=== PATIENT | female | born 1980 | race Caucasian/White ===

== ENCOUNTER 2017-01-10 10:41 | Emergency (ER) | payer BC ==
[~2017-01-10] VITALS: Ht 162.6 cm; Wt 67.5 kg
[~2017-01-10 10:41] MED LIST: NO DAILY MEDICATIONS
[2017-01-10 10:45] VITALS: Ht 162.6 cm; Wt 67.5 kg
--- OUTSIDE RECORDS SUMMARY | 2017-01-10 10:45 | XMS REPORT | Continuity of Care Document ---
Author Author [facility] Organization [facility] Address Unknown Phone Unavailable Support Name Relationship Address Phone TERRIE PIZANO MD Caregiver [address] [place] [address] Unavailable SATNAM MORATAYA APRN Caregiver [address] [place] [address] Unavailable IZABEL NIEVES Next Of Kin [address] [place] [address] Insurance Providers Guarantor Constance Wyatt Address [address] [place] [address] Email [email or web address] Payer [facility] Other Policy Number [id number] Subscriber's Name Branham JamesConstance fuller Relationship 18 Self Group Number [id number] Chief Complaint and Reason for Visit Chief Complaint Cough,Fever,Flu,URI Reason for Visit [id number] Problems Active Problems Medical Problem Onset Date Status Neck muscle spasm Unknown Acute Neck muscle spasm Unknown Acute Past Problems Medical Problem Onset Date Acute upper respiratory infection Unknown Influenza B Unknown Medications Current Home Medications Medication Dose Units Route Directions Days Qty Instructions Start Date No Daily Medications 12/18/16 Social History Social History Problem Response Recorded Date/Time Onset Date Status Hx Substance Use No 07/25/2014 2:13pm Not Applicable Not Applicable Hx Alcohol Use No 07/25/2014 2:13pm Not Applicable Not Applicable Has the pt used tobacco in the last 12 months No 06/04/2012 9:30am Not Applicable Not Applicable Tobacco Usage none 07/28/2014 11:20pm Not Applicable Not Applicable Hospital Discharge Instructions No hospital discharge instructions. Plan of Care Discharge Date 12/18/16 5:28pm Disposition 01 DISCHARGED HOME, SELF-CARE Condition at Discharge Stable Instructions/Education Provided Influenza (ED) Prescriptions See Medication Section Referrals TERRIE PIZANO MD Address: [address] [place], [place] [id number] Functional Status No functional status results. Allergies, Adverse Reactions, Alerts No known allergies. Immunizations Query Response on File Recorded Date/Time Hx Influenza Vaccination No 07/25/14 2:13pm Hx Pneumococcal Vaccination No 07/25/14 2:13pm Hx Influenza Vaccination No 07/25/14 2:13pm Influenza Vaccine Hx NO 12/18/16 5:16pm Tetanus Diptheria Vaccine History UNKNOWN 12/18/16 5:16pm Vital Signs Acute Vital Signs Vital Response Date/Time Temperature (Fahrenheit) 98.8 deg F (96.8 - 99.1) 12/18/2016 5:11pm Temperature (Calculated Celsius) 37.09808 degrees C (36.0 - 37.3) 12/18/2016 5:11pm Pulse Rate (adult) 106 bpm (60 - 100) 12/18/2016 5:11pm Respiratory Rate 20 breaths/min (10 - 20) 12/18/2016 5:11pm O2 Sat by Pulse Oximetry 100 % (90 - 100) 12/18/2016 5:11pm Blood Pressure 123/83 mm Hg 12/18/2016 5:11pm Height (Inches) 61.00 inches 12/18/2016 5:11pm Weight (Kilograms) 66.400 kg 12/18/2016 5:11pm Body Mass Index (BMI) 27.0 12/18/2016 5:11pm Results No known relevant diagnostic tests, laboratory data and/or discharge summary. Procedures No known history of procedures. Encounters Encounter Location Arrival/Admit Date Discharge/Depart Date Attending Provider Departed Emergency Room [facility] 12/18/16 5:01pm 12/18/16 5: 28pm SATNAM MORATAYA APRN Departed Emergency Room [facility] 10/09/16 10:06am 10/09/16 11: 12am SATNAM MORATAYA APRN Recent Diagnosis
--- OUTSIDE RECORDS SUMMARY | 2017-01-10 10:45 | XMS REPORT | Continuity of Care Document ---
Author Author [facility] Organization [facility] Address Unknown Phone Unavailable Support Name Relationship Address Phone KLARISSA RAMOS MD Caregiver [address] [place] [address] [place] [address] LEANDER CHANCE MD Caregiver [address] [place] [address] IZABEL NIEVES Next Of Kin [address] [place] [phone] Insurance Providers Payer Name Policy Number Subscriber Name Relationship Self Pay Constance Wyatt 18 Self Problems Medical Problems Problem Onset Date Status Neck muscle spasm Unknown Active Neck muscle spasm Unknown Active Medications Medication Dose Route Sig Days/Qty Instructions Order Date Discontinued Date Status Hydrocodone/Acetaminophen 1 Tab PO EVERY 4-6 HOURS PRN PAIN 15 Qty for pain not controlled with IBuprofen 07/25/14 Active Orphenadrine Citrate 100 Mg PO EVERY 12 HOURS PRN SPASMS 20 Qty Active Social History Social History Problem Response Recorded Date/Time Smoking Status Never smoker 07/25/2014 2:13pm Hx Substance Use No 07/25/2014 2:13pm Hx Alcohol Use No 07/25/2014 2:13pm Has the pt used tobacco in the last 12 months No 06/04/2012 9:30am Query Response Start Date Stop Date Smoking Status Never smoker Hospital Discharge Instructions No hospital discharge instructions. Plan of Care No plan of care. Functional Status Query Response Date Recorded Physical Hygiene Self July 25, 2014 2:13pm Disabilities None July 25, 2014 2:13pm Devices Used None July 25, 2014 2:13pm Dressing Self July 25, 2014 2:13pm Ambulation Self July 25, 2014 2:13pm Diet Self July 25, 2014 2:13pm Mental Status Alert Oriented July 25, 2014 2:13pm Disabilities None July 25, 2014 2:13pm Devices Used None July 25, 2014 2:13pm Physical Hygiene Self July 25, 2014 2:13pm Dressing Self July 25, 2014 2:13pm Ambulation Self July 25, 2014 2:13pm Diet Self July 25, 2014 2:13pm Allergies, Adverse Reactions, Alerts Allergen Type Severity Reaction Status Last Updated No Known Allergies Active 03/04/12 Immunizations Name Given Type Hx Influenza Vaccination No Historical Hx Pneumococcal Vaccination No Historical Hx Influenza Vaccination No Historical Vital Signs Acute Vital Signs Vital Response Date/Time Temperature (Fahrenheit) 98.3 deg F (96.8 - 99.1) Temperature (Calculated Celsius) 36.18824 degrees C (36.0 - 37.3) Pulse Rate (adult) 64 bpm (60 - 100) Respiratory Rate 16 breaths/min (10 - 20) O2 Sat by Pulse Oximetry 100 % (90 - 100) Blood Pressure 118/69 mm Hg Height 5 ft 1 in Weight 175 lb Body Mass Index 33.0 kg/m^2 Results Test Source Date Result Interp. Ref. Range Comments Alanine Aminotransferase (ALT/SGPT) June 05, 2012 4:35am 11 U/L N 9 -52 Albumin June 05, 2012 4:35am 2.8 G/DL L 3.5-5.0 Albumin/Globulin Ratio June 05, 2012 4:35am 0.9 RATIO L 1.1-2.2 Alkaline Phosphatase June 05, 2012 4:35am 70 U/L N 38-126 Anion Gap June 05, 2012 4:35am 7 MEQ/L N 5-15 Aspartate Amino Transf (AST/SGOT) June 05, 2012 4:35am 15 U/L N 14- 36 BUN/Creatinine Ratio June 05, 2012 4:35am 20 RATIO N 6-26 Band Neutrophils # May 25, 2012 5:49pm 1.1 T/MM3 - PLEASE CASH POSTING SPECIALIST Band Neutrophils % May 25, 2012 5:49pm 9.0 % H 0-6 PLEASE CASH POSTING SPECIALIST Basophils # (Auto) June 07, 2012 4:35am 0.0 T/MM3 N 0-0.2 Basophils (%) (Auto) June 07, 2012 4:35am 0.5 % N 0-2 Blood Urea Nitrogen June 05, 2012 4:35am 16.0 MG/DL N 7-17 Calcium Level June 05, 2012 4:35am 7.9 MG/DL DL 8.4-10.2 Calculated Osmolality June 05, 2012 4:35am 266 MOSM/KG N 261-280 Carbon Dioxide Level June 05, 2012 4:35am 26 MEQ/L N 22-30 Chloride Level June 05, 2012 4:35am 105 MEQ/L N 98-107 Conjugated Bilirubin March 04, 2012 6:56pm 0.00 MG/DL N 0.00-0.30 Creatinine June 05, 2012 4:35am 0.8 MG/DL DN 0.7-1.2 Eosinophils # (Auto) June 07, 2012 4:35am 0.1 T/MM3 N 0-0.5 Eosinophils (%) (Auto) June 07, 2012 4:35am 0.8 % N 0-4 Ferritin August 16, 2011 1:20pm 24.4 NG/ML N 6-137 Folate August 16, 2011 1:20pm > 20.0 NG/ML H 2.76-20 NORMAL ADULT RANGE: 2.76->20 ng/mL Free Thyroxine August 16, 2011 1:20pm 0.98 NG/DL N 0.78-2.19 Globulin June 05, 2012 4:35am 3.1 G/DL N 2.4-3.6 Glucose Level June 05, 2012 4:35am 85 MG/DL N 65-110 Hematocrit June 07, 2012 4:35am 31.0 % L 36-46 Hemoglobin June 07, 2012 4:35am 9.8 GM/DL L 12-16 Hemoglobin A1c August 16, 2011 1:20pm 4.8 % L 6-7 <6.0 NON-DIABETIC RANGE6.0-7.0 ADA THERAPEUTIC RANGE >7.0 ACTION SUGGESTED Lymphocytes # (Auto) June 07, 2012 4:35am 1.7 T/MM3 N 1-4.8 Lymphocytes # (Manual) May 25, 2012 5:49pm 0.7 T/MM3 L 1-4.8 PLEASE CASH POSTING SPECIALIST Lymphocytes % (Manual) May 25, 2012 5:49pm 6.0 % L 23-45 PLEASE CASH POSTING SPECIALIST Lymphocytes (%) (Auto) June 07, 2012 4:35am 29.2 % N 23-45 Mean Corpuscular Hemoglobin June 07, 2012 4:35am 28.8 UUG N 26-34 Mean Corpuscular Hemoglobin Concent June 07, 2012 4:35am 31.6 GM/DL N 31-37 Mean Corpuscular Volume June 07, 2012 4:35am 91.2 UM3 N 80-100 Mean Platelet Volume June 07, 2012 4:35am 10.5 UM3 N 9.4-12.4 Monocytes # (Auto) June 07, 2012 4:35am 0.3 T/MM3 N 0-0.8 Monocytes # (Manual) May 25, 2012 5:49pm 0.6 T/MM3 N 0-0.8 PLEASE CASH POSTING SPECIALIST Monocytes % (Manual) May 25, 2012 5:49pm 5.0 % N 0-9.0 PLEASE CASH POSTING SPECIALIST Monocytes (%) (Auto) June 07, 2012 4:35am 4.4 % N 0-9.0 Neutrophils # (Auto) June 07, 2012 4:35am 3.8 T/MM3 N 1.8-7.7 Neutrophils # (Manual) May 25, 2012 5:49pm 9.5 T/MM3 H 1.8-7.7 PLEASE CASH POSTING SPECIALIST Neutrophils % (Manual) May 25, 2012 5:49pm 80.0 % H 33-66 PLEASE CASH POSTING SPECIALIST Neutrophils (%) (Auto) June 07, 2012 4:35am 64.6 % N 33-66 Platelet Count June 07, 2012 4:35am 241 T/MM3 N 130-400 Potassium Level June 05, 2012 4:35am 4.2 MEQ/L N 3.6-5 RDW Standard Deviation June 07, 2012 4:35am 42.6 FL N 36.9-50.2 Red Blood Count June 07, 2012 4:35am 3.40 M/MM3 L 4.00-5.20 Sodium Level June 05, 2012 4:35am 138 MEQ/L N 134-144 Thyroid Stimulating Hormone (TSH) August 16, 2011 1:20pm 0.60 MIU/L N 0.47-4.68 Total Bilirubin June 05, 2012 4:35am 0.10 MG/DL L 0.20-1.30 Total Protein June 05, 2012 4:35am 5.9 G/DL L 6.3-8.2 Unconjugated Bilirubin March 04, 2012 6:56pm 0.00 MG/DL N 0.00-1.10 Urine Bacteria May 25, 2012 5:49pm 1+ H - Urine Bilirubin June 04, 2012 10:51am Negative - Has specimen been collected/obtained? Y Urine Blood June 04, 2012 10:51am Negative - Has specimen been collected/obtained? Y Urine Collection Type June 04, 2012 10:51am Voided - Has specimen been collected/obtained? Y Urine Color June 04, 2012 10:51am Yellow - Has specimen been collected/obtained? Y Urine Culture Indicated May 25, 2012 5:49pm Cult reflexed &setup - Urine Drug Screen (T) October 09, 2013 11:10am Sent out - Urine Glucose (UA) June 04, 2012 10:51am Negative - Has specimen been collected/obtained? Y Urine Ketones June 04, 2012 10:51am Negative - Has specimen been collected/obtained? Y Urine Leukocyte Esterase June 04, 2012 10:51am Negative - Has specimen been collected/obtained? Y Urine Nitrite June 04, 2012 10:51am Negative - Has specimen been collected/obtained? Y Urine Protein June 04, 2012 10:51am Negative - Has specimen been collected/obtained? Y Urine RBC May 25, 2012 5:49pm 10-20 /HPF H - Urine Specific [place] June 04, 2012 10:51am 1.010 L - Has specimen been collected/obtained? Y Urine Squamous Epithelial Cells May 25, 2012 5:49pm Few - Urine Turbidity June 04, 2012 10:51am Clear - Has specimen been collected/obtained? Y Urine Urobilinogen June 04, 2012 10:51am Normal EU/DL - Has specimen been collected/obtained? Y Urine WBC May 25, 2012 5:49pm 10-20 /HPF H - Urine WBC Clumps May 18, 2012 6:07pm Many H - Urine pH June 04, 2012 10:51am 6.5 - Has specimen been collected /obtained? Y Vitamin B12 Level August 16, 2011 1:20pm 429 PG/ML N 239-931 White Blood Count June 07, 2012 4:35am 5.9 T/MM3 N 4.5-11.0 Lab Scanned Report October 15, 2013 7:26pm [facility] LAB [id number] - Glomerular Filtration Rate Calc June 05, 2012 4:35am 83 - Immature Granulocyte # (Auto) June 07, 2012 4:35am 0.03 T/MM3 N 0.00-0.03 Immature Granulocyte % (Auto) June 07, 2012 4:35am 0.5 % N 0.0-0.5 Beta HCG, Quantitative March 04, 2012 6:56pm [id number] UIU/ML - --- 03/04 1955 ---HCG-QUANTI previously reported as: > [id number] UIU/ML NON- INDIVIDUALS=0 - 4.83; SAMPLES BETWEEN 4.83 - 25 SHOULD BE RE-TESTED AFTER 48 HOURS IF IS SUSPECTED; GESTATION 1-10 WEEKS: 45-256,380; 11-15 WEEKS: 11,556-265,380; 16-22 WEEKS: 27,023-111,954; 23-40 WEEKS: 24,031-101,566 Urine Microscopic Not Indicated June 04, 2012 10:51am Not indicated - Has specimen been collected/obtained? Y Blood Culture Blood June 04, 2012 10:45am NO GROWTH AFTER 5 DAYS Urine Culture Urine, Clean Catch Voided June 04, 2012 12:13pm Escherichia Coli Gram Stain Thigh-Left January 15, 2012 5:30pm Name: CONSTANCE WYATT Unit #: [id number] : 1980 Sex: F Loc / Svc: ED DOS: 07/25/14 Signed Report #: [id number] DIAGNOSTIC IMAGING REPORT TYPE OF EXAM: CT CERVICAL SPINE W/O CONTRAST Dictated By: ERLIN AL MD INDICATION: ITS.REASON: neck popped yesterday, severe neck pain CT CERVICAL SPINE W/O CONTRAST: Comparison: None Technique: Axial CT images through the cervical spine were performed without contrast. Coronal and sagittal reformatted images were also obtained. FINDINGS: The alignment of the cervical spine is normal. Multilevel degenerative changes are present. There is no evidence of acute fracture or subluxation of the cervical spine. The facet joints are well aligned with preservation of the intervertebral disk and facet joints. The atlantoaxial articulation, dens, and upper cervical spine demonstrate no subluxation. There is no evidence of significant spinal stenosis, foraminal compromise, or significant disk herniation. The paraspinal soft tissues and spinal canal appear unremarkable. IMPRESSION: No acute traumatic abnormality of the cervical spine. . Addendum: The second sentence of the findings section should read: No significant degenerative changes are present. . Procedures No known history of procedures. Encounters Encounter Location Date/Time Departed Emergency Room [facility] 07/25/14 2:02pm Recent Diagnosis
[2017-01-10] MEDS ORDERED: CYCL-375 PO (11:08)
[2017-01-10] MEDS ORDERED: MELO-267 PO (11:08)
--- NOTE | 2017-01-10 11:24 | NUR ---
LAB LAB AT BEDSIDE FOR BLOOD DRAW
--- OUTSIDE RECORDS SUMMARY | 2017-01-10 11:36 | XMS REPORT | Continuity of Care Document ---
Author Author [facility] Organization [facility] Address Unknown Phone Unavailable Support Name Relationship Address Phone KLARISSA RAMOS MD Caregiver [address] [place] [address] [place] [address] LEANDER CHANCE MD Caregiver [address] [place] [address] IZABEL NIEVES Next Of Kin [address] [place] [phone] Insurance Providers Payer Name Policy Number Subscriber [...] F (96.8 - 99.1) Temperature (Calculated Celsius) 36.01417 degrees C (36.0 - 37.3) Pulse Rate [...] 25, 2012 5:49pm 1.1 T/MM3 - PLEASE FIGHT MANAGER Band Neutrophils % May 25, 2012 5:49pm 9.0 % H 0-6 PLEASE FIGHT MANAGER Basophils # (Auto) June 07, 2012 4:35am [...] 2012 5:49pm 0.7 T/MM3 L 1-4.8 PLEASE FIGHT MANAGER Lymphocytes % (Manual) May 25, 2012 5:49pm 6.0 % L 23-45 PLEASE FIGHT MANAGER Lymphocytes (%) (Auto) June 07, 2012 4:35am [...] 2012 5:49pm 0.6 T/MM3 N 0-0.8 PLEASE FIGHT MANAGER Monocytes % (Manual) May 25, 2012 5:49pm 5.0 % N 0-9.0 PLEASE FIGHT MANAGER Monocytes (%) (Auto) June 07, 2012 4:35am 4.4 % N 0-9.0 Neutrophils # (Auto) June 07, 2012 4:35am 3.8 T/MM3 N 1.8-7.7 Neutrophils # (Manual) May 25, 2012 5:49pm 9.5 T/MM3 H 1.8-7.7 PLEASE FIGHT MANAGER Neutrophils % (Manual) May 25, 2012 5:49pm 80.0 % H 33-66 PLEASE FIGHT MANAGER Neutrophils (%) (Auto) June 07, 2012 4:35am [...] 5:49pm 10-20 /HPF H - Urine Specific [place] June 04, 2012 10:51am 1.010 L - [...] Report October 15, 2013 7:26pm [facility] [id number] - Glomerular Filtration Rate Calc June 05, 2012 4:35am 83 - Immature Granulocyte # (Auto) June 07, 2012 4:35am 0.03 T/MM3 N 0.00-0.03 Immature Granulocyte % (Auto) June 07, 2012 4:35am 0.5 % N 0.0-0.5 Beta HCG, Quantitative March 04, 2012 6:56pm [id number] UIU/ML - --- 03/04 1955 ---HCG-QUANTI previously reported as: > [id number] UIU/ML NON- INDIVIDUALS=0 - 4.83; SAMPLES BETWEEN [...] 2012 5:30pm Name: CONSTANCE WYATT Unit #: [id number] : 1980 Sex: F Loc / Svc: ED DOS: 07/25/14 Signed Report #: [id number] DIAGNOSTIC IMAGING REPORT TYPE OF EXAM: CT [...] Encounters Encounter Location Date/Time Departed Emergency Room [facility] 07/25/14 2:02pm Recent Diagnosis
[2017-01-10 11:58] LABS: BLOOD, URINE NEGATIVE (NEGATIVE); COLOR,URINE YELLOW (YELLOW); LEUKOCYTE ESTERASE ,URINE NEGATIVE (NEGATIVE); NITRITE,URINE NEGATIVE (NEGATIVE); UROBILINOGEN,URINE 0.2 EU/DL (NORMAL)
[2017-01-10 11:58] LABS: BASOPHILS % (AUTO) 0.4 % (0-2); EOSINOPHILS # (AUTO) 0.1 T/MM3 (0-0.5); HCT - HEMATOCRIT 42.3 % (36-46); HGB - HEMOGLOBIN 14.1 GM/DL (12-16); IMMATURE GRANULOCYTE # (AUTO) 0.02 T/MM3 (0.00-0.03); IMMATURE GRANULOCYTE % (AUTO) 0.4 % (0.0-0.5); LYMPHOCYTES # (AUTO) 1.6 T/MM3 (1-4.8); LYMPHOCYTES % (AUTO) 29.9 % (23-45); MEAN CORPUSCULAR HGB 30.9 UUG (26-34); MEAN CORPUSCULAR HGB CONC(MCHC 33.3 GM/DL (31-37); MEAN CORPUSCULAR VOLUME 92.8 UM3 (80-100); MEAN PLATELET VOLUME 12.2 UM3 (9.4-12.4); MONOCYTES # (AUTO) 0.3 T/MM3 (0-0.8); NEUTROPHILS #(AUTO)-ABSOLUTE 3.3 T/MM3 (1.8-7.7); NEUTROPHILS % (AUTO) 63.3 % (33-66); RED BLOOD COUNT 4.56 M/MM3 (4.00-5.20); WBC - WHITE BLOOD COUNT 5.2 T/MM3 (4.5-11.0)
[2017-01-10 12:12] LABS: ALBUMIN 4.1 G/DL (3.5-5.0); ALBUMIN/GLOBULIN RATIO 1.2 RATIO (1.1-2.2); ALKALINE PHOSPHATASE 69 U/L (38-126); ALT (SGPT) 33 U/L (9-52); ANION GAP 16 MEQ/L (5-15); AST (SGOT) 30 U/L (14-36); BUN/CREATININE RATIO 23 RATIO (6-26); CALCIUM 9.4 MG/DL (8.4-10.2); CHLORIDE 110 MEQ/L (98-107); CO2 - CARBON DIOXIDE 20 MEQ/L (22-30); CREATININE 0.6 MG/DL (0.7-1.2); GLOMERULAR FILTRATION RATE 113; GLUCOSE 80 MG/DL (65-110); LIPASE 148 U/L (23-300); POTASSIUM 4.5 MEQ/L (3.6-5); SODIUM 146 MEQ/L (134-144); TOTAL PROTEIN 7.5 G/DL (6.3-8.2)
--- NOTE | 2017-01-10 12:35 | NUR ---
PELVIC DR ADKINS AT BEDSIDE WITH RN, PELVIC EXAM PERFORMED, PATIENT TOLERATES EXAM WELL.
[2017-01-10] MEDS ORDERED: FENTANYL 100mcg/2ml INJECTION IV ONE (12:45)
[2017-01-10] MEDS ORDERED: NORMAL SALINE 1,000 ML IV ONE (12:45)
[2017-01-10] MEDS ORDERED: ONDANSETRON 4mg/2ml INJECTION IV ONE (12:45)
[2017-01-10] MEDS ORDERED: IOHEXOL 300 MG/ML 100ml INJECTION ONE (12:54)
[2017-01-10] MEDS ORDERED: NORMAL SALINE 100 ML ONE (12:54)
[2017-01-10] MEDS ORDERED: SALINE FLUSH 10ml SYRINGE ONE (12:54)
--- NOTE | 2017-01-10 13:00 | ERPDOC ---
Departure Disposition Decision Date: Jan 10, 2017 Disposition Decision Time: 15:09 Disposition: 01 DISCHARGED HOME, SELF-CARE Impression Impression Impression: Primary Impression: Abdominal pain Abdominal location: unspecified location Qualified Codes: R10.9 - Unspecified abdominal pain Severity: Moderate Condition: Improved Seen By: Physician only Referrals: TERRIE PIZANO MD (Family) 2 Days Patient Instructions: Abdominal Pain (ED) Problems/Meds/Labs Reviewed?: Yes Medications reviewed and manag: Yes Follow up care ordered?: Yes Mental Status: Alert, Oriented Scripts Ondansetron (Zofran Odt) 4 Mg Tab.rapdis 4 MG PO Q4HR Y for NAUSEA &/OR VOMITING for 3 Days, #18 TAB 0 Refills Prov: KAVON ADKINS DO 01/10/17 Hydrocodone/Acetaminophen ([place] 5-325 Tablet) 5-325 Tablet 1 TAB PO Q4HR Y for PAIN for 3 Days, #18 TAB 0 Refills Prov: KAVON ADKINS DO 01/10/17 HPI - Abdominal Pain General Chief Complaint: Abdominal Pain Stated Complaint: ABD PAIN Time Seen by Provider: 10:53 Source: patient History/Exam Limitations: no limitations HPI - Abdominal Pain Initial Comments 36-year-old female presents to the emergency department with the chief complaint of generalized lower abdominal discomfort. Patient noted onset of symptoms one day ago. She denies any trauma or injury. Pain is moderate in nature. Pain is dull. There is no radiation. She does not note anything that makes the pain any better or any worse. She denies any trauma, travel, poorly prepared food, or recent antibiotic use. There are no other complaints or associated symptoms. She denies any pelvic symptoms or concern for STD. Patient states she is and monogamous. Occurred At: home Onset: Gradual Allergies: Coded Allergies: No Known Allergies (Unverified , 01/10/17) Past History Past Medical History Pt denies signifigant [facility] Surgical History Reproductive/: tubal ligation Family History Family History: Negative Vaccines Hx Influenza Vaccination: No Hx Pneumococcal Vaccination: No Social History Smoking Status: Never smoker Substance Use Type: does not use Alcohol Intake: none Review of Systems Constitutional Constitutional: DENIES: chills, fever Eyes General: DENIES: erythema, exudate Lids/Accessories: DENIES: erythema, swelling Vision: DENIES: acuity, blurring ENMT Ears: DENIES: drainage, erythema Hearing: DENIES: hearing loss Balance: DENIES: ataxia, falling to one side Sinuses: DENIES: congestion, pain Nose: DENIES: nosebleeds Mouth/Throat: DENIES: painful swallowing, sore throat Teeth: DENIES: pain Jaw: DENIES: pain Cardiovascular Cardiac: DENIES: chest pain, dyspnea on exertion Rhythm/Rate: DENIES: irregular beat, palpitations Vascular: DENIES: pedal edema, unilateral swelling Pulmonary Respiratory: DENIES: cough, dyspnea, pleuritic chest pain, sputum GI Upper Abdomen: DENIES: nausea, pain, vomiting Lower Abdomen: pain, DENIES: diarrhea General: DENIES: dysuria, frequency Musculoskeletal General: DENIES: joint pain, tenderness Integumentary Skin: DENIES: itching, rash Neurological General: DENIES: headache, numbness, weakness Psychiatric Psychiatric: DENIES: emotional instability, suicidal ideation/attempt Endocrine Endocrine: DENIES: polydipsia, polyphagia Hematologic/Lymphatic Hematologic/Lymphatic: DENIES: frequent nosebleeds, lymphadenopathy Allergic/Immunological Allergic/Immunoligical: DENIES: allergic reactions, hives Physical Exam General General Nourishment: well nourished, well developed, appears stated age, no acute distress, adult General Body Habitus: well groomed Vitals and Pain First Documented Vital Signs Date Time Temp Pulse Resp B/P Pulse Ox O2 Delivery O2 Flow Rate FiO2 01/10/17 10:45 96.9 76 19 113/66 100 Room Air Weight: Kilograms: 67.500 Height (feet): 5 Height (inches): 4.00 Triage Pain Scale: RN VS reviewed by Provider: Yes Normal Exams: Head: Normocephalic w/o trauma Eyes: Pupils are PERRLA w/ EOMI, No scleral icterus, irritation, or foreign bodies noted ENMT: No facial trauma, nasal exudates, pharyngeal erythema, or exudates are noted Dental: No fractured, loose, or missing teeth noted Neck: Full range of motion, without adenopathy, JVD, bruits or thyromegaly Chest/Resp: Clear all mora, with good airflow, and symmetry bilaterally CV: Regular rate and rhythm, without murmur or gallop, Pulses 2+ all extremities, capillary refill, <2 seconds all ext., no pedal edema noted Abdomen: Bowel sounds positive, soft, non-tender, non-distended, no hepatosplenomegaly, masses or bruits noted Lymphatic: No lymphadenopathy, or lymphedema noted Musculoskeletal: No tenderness, or deformity noted, good range of motion, all extremities Integumentary: No rashes, hives, or bruising noted, hair and nails, without abnormality Neurologic: Patient is alert, and oriented, cranial nerves, motor/sensory/ cerebellar, exams w/o gross deficits, to observation Psychiatric: Patient exhibits, appropriate attention, emotion and affect Abdomen (brief) Abdominal Brief: FOUND: soft Comments Soft. Bowel sounds active. No rebound or guarding. Mild generalized lower abdominal tenderness to palpation. No CVA tenderness. Nondistended. (brief) Comments Pelvic Exam - normal external exam. Cervical os is closed. No CMT. No adnexal tenderness or masses. No abnormal discharge or bleeding. Normal uterus. Differential Diagnoses Considering: Bowel Obstruction, Ileus, Ovarian Cyst, UTI Progress Results/Orders Orders Procedure Category Date Status Time Cbc W/Auto LAB 01/10/17 Complete Diff-Reflex Manual Cmp - Comprehensive LAB 01/10/17 Complete Metabolic Lipase LAB 01/10/17 Complete Ua, Dip Wreflex LAB 01/10/17 Complete Microsc & [employer] Specialist 11:02 LAB 01/10/17 Complete Qualitative, Urine 11:02 Microscopic Exam (Wet KALYN 01/10/17 In Process Prep-David 12:41 Gc - Chlamydia Pcr LAB 01/10/17 Complete 12:41 Genital Culture KALYN 01/10/17 In Process W/Gram Stain 12:41 Ct Abd/Pelvis CT 01/10/17 Resulted W/Contrast Only 12:43 Normal Saline (Normal PHA 01/10/17 Complete Saline Iv) 12:45 Fentanyl (Fentanyl) PHA 01/10/17 Complete 12:45 Ondansetron Inj PHA 01/10/17 Complete (Zofran) 12:45 Iohexol (Omnipaque) PHA 01/10/17 Complete 12:54 Normal Saline (Ns) PHA 01/10/17 Complete 12:54 Saline Flush (Iv PHA 01/10/17 Complete Flush) 12:54 Hydrocodone/Acetaminophen PHA 01/10/17 Complete ([place] 5/325) 15:15 Lab Results Laboratory Tests Test 01/10/17 11:48 01/10/17 11:49 01/10/17 11:52 01/10/17 12:45 Turbidity < 20 Sodium Level 146MEQ/L Potassium Level 4.5MEQ/L Chloride Level 110MEQ/L Carbon Dioxide Level 20MEQ/L Anion Gap 16MEQ/L Blood Urea Nitrogen 14.0MG/DL Creatinine 0.6MG/DL Glomerular Filtration Rate Calc 113 BUN/Creatinine Ratio 23RATIO Glucose Level 80MG/DL Calculated Osmolality 281MOSM/KG Calcium Level 9.4MG/DL Total Bilirubin 0.70MG/DL Icterus Index < 2 Aspartate Amino Transf (AST/SGOT) 30U/L Alanine Aminotransferase (ALT/SGPT) 33U/L Alkaline Phosphatase 69U/L Total Protein 7.5G/DL Albumin 4.1G/DL Globulin 3.4G/DL Albumin/Globulin Ratio 1.2RATIO Lipase 148U/L Chemistry Specimen Hemolysis 49 White Blood Count 5.2T/MM3 Red Blood Count 4.56M/MM3 Hemoglobin 14.1GM/DL Hematocrit 42.3% Mean Corpuscular Volume 92.8UM3 Mean Corpuscular Hemoglobin 30.9UUG Mean Corpuscular Hemoglobin Concent 33.3GM/DL RDW Standard Deviation 43.5FL Platelet Count 146T/MM3 Mean Platelet Volume 12.2UM3 Immature Granulocyte % (Auto) 0.4% Neutrophils (%) (Auto) 63.3% Lymphocytes (%) (Auto) 29.9% Monocytes (%) (Auto) 5.0% Eosinophils (%) (Auto) 1.0% Basophils (%) (Auto) 0.4% Absolute Immature Granulocyte (auto 0.02T/MM3 Absolute Neutrophils (auto) 3.3T/MM3 Absolute Lymphocytes (auto) 1.6T/MM3 Absolute Monocytes (auto) 0.3T/MM3 Absolute Eosinophils (auto) 0.1T/MM3 Absolute Basophils (auto) 0.0T/MM3 Urine Collection Type Cleancatch-midstream Urine Color Yellow Urine Turbidity Clear Urine pH 8.0 Urine Specific [place] 1.015 Urine Protein Negative Urine Glucose (UA) Negative Urine Ketones Negative Urine Blood Negative Urine Nitrite Negative Urine Bilirubin Negative Urine Urobilinogen 0.2EU/DL Urine Leukocyte Esterase Negative Urinalysis Comment Microscopic not ind. Urine Test Negative Chlamydia trachomatis DNA (PCR) Negative N. gonorrhoeae DNA Specimen Source Cervical/vaginal Neisseria gonorrhoeae DNA (PCR) Negative Medications Current ED Medications Sodium Chloride (Normal Saline IV) 1,000 ml @ 999 mls/hr Q1H1M ONCE IV Last administered on 01/10/17 13:35; Start 01/10/17 at 12:45; Stop 01/10/17 at 13:45 ; Status DC Fentanyl (Fentanyl) 50 mcg O ONCE IV Last administered on 01/10/17 13:39; Start 01/10/17 at 12:45; Stop 01/10/17 at 12:46; Status DC Ondansetron HCl (Zofran) 4 mg O ONCE IV Last administered on 01/10/17 13:35; Start 01/10/17 at 12:45; Stop 01/10/17 at 12:46; Status DC Iohexol 1 bottle 1 bottle STK-MED ONCE .ROUTE ; Start 01/10/17 at 12:54; Stop at 12:55; Status DC Sodium Chloride (NS) 100 ml @ As Directed STK-MED ONCE .ROUTE ; Start 01/10/17 at 12:54; Stop 01/10/17 at 12:55; Status DC Sodium Chloride (Iv Flush) 10 ml STK-MED ONCE .ROUTE ; Start 01/10/17 at 12:54; Stop 01/10/17 at 12:55; Status DC Acetaminophen/ Hydrocodone Bitart ([place] 5/325) 1 tab O ONCE PO Last administered on 01/10/17 15:18; Start 01/10/17 at 15:15; Stop 01/10/17 at 15:16 ; Status DC Progress Progress Labs / imaging were discussed in detail with the patient and family and questions are answered. Patient was monitored in the emergency department for a safe timeframe and discharged home in improved condition. Patient is given IV hydration. Patient is given parental narcotic and antiemetic medications venously in the emergency department with improvement of symptoms. Patient is discharged home in improved condition. Patient is to follow up as instructed. Patient is to return to the emergency Department if her condition worsens or changes in any manner. Patient is in agreement with the current plan of management. She is to follow up as instructed. Strict return precautions were provided to patient verbalizes agreement and understanding. Patient's vital signs are unremarkable in the emergency department. Her laboratory evaluation is unremarkable. It is safe to discharge the patient home at this time with outpatient follow-up. Prescription for [place] and Zofran was provided. CT CT : CT: Abd/Pelvis IV contrast Interpretation: Abnormal (ruptured hemorrhagic ovarian cyst. Otherwise no acute processes.), Reviewed Written Report KAVON ADKINS DO Jan 10, 2017 13:00
--- NOTE | 2017-01-10 13:38 | DI ---
Indication: ITS.REASON: pain PROCEDURE: CT ABD/PELVIS W/CONTRAST ONLY: Encounter: Initial Comparison: June 05, 2012 Technique: Axial CT images were performed through the abdomen and pelvis after the administration of intravenous contrast. Coronal and sagittal two-dimensional reformats. Automated Exposure Control and Iterative Reconstruction dose reducing techniques were utilized. Contrast: Omnipaque 300 89 mL Findings: The lung bases are clear. Calcified granuloma in the lingula. Stable small cyst in the right hepatic dome with a cyst or hemangioma in the left hepatic lobe which is also unchanged. No new liver lesions or masses. No bile duct dilatation. The spleen, pancreas and adrenal glands are within normal limits. Small left renal cyst. Kidneys are otherwise normal. No abdominal or pelvic lymphadenopathy. The bladder is normal. Heterogeneous enhancement of the uterus with a moderate amount of free pelvic fluid. Probable ruptured hemorrhagic cyst in the left ovary. This is seen as a crescentic area of enhancement in the left posterior cul-de-sac region measuring 2.2 x 0.8 cm in size. No evidence of a bowel obstruction. The appendix is normal. Bone windows are unremarkable. Impression: Findings of probable ruptured left ovarian hemorrhagic cyst. Less likely etiology would be pelvic inflammatory disease and tubo-ovarian abscess. Recommend clinical and laboratory correlation. .
[2017-01-10] MEDS ORDERED: ONDA4TAB7 PO (15:11)
[2017-01-10] MEDS ORDERED: HYDR-4246 PO (15:11)
[2017-01-10] MEDS ORDERED: HYDROCODONE/APAP 5 mg/325 mg TABLET PO ONE (15:15)
[2017-01-10 15:19] VITALS: BP 115/60; PULSE 67; RESP 14; TEMP 96.9; O2SAT 100
== END 2017-01-10 15:19 | disposition home or self-care (01) ==
LOC: ED 10:41
DX: R10.30 Lower abdominal pain, unspecified (principal)
CPT/HCPCS: 36416; 74177; 80053; 81003; 81025; 83690; 85025; 87070; 87205; 87210; 87220; 87491; 87591; 96361; 96374; 96375; 99284; J2405; J3010; J7030; J7050; Q9967